=== PATIENT | male | born 1970 | race Caucasian/White ===

== ENCOUNTER 2017-11-30 20:16 | Observation (INO) ==
[2017-11-30] MEDS ORDERED: Aspirin 81 MG TAB.CHEW PO ONE (20:44)
--- NOTE | 2017-11-30 20:52 | Emergency Department Note ---
Disposition Clinical Impression: Unstable angina Disposition: Admitted As Inpatient Condition: Fair Referrals: Man Azar DO [Partnered Physician] - Forms: ED Satisfaction Letter Time of Disposition: 22:36 Chest Pain HPI - General Chief Complaint: ED Chest Pain Stated Complaint: Chest Pain x 1 Day Time Seen by Provider: 11/30/17 20:30 Source: patient Mode of arrival: ambulatory Limitations: no limitations Vital Signs Reviewed: Yes Nursing Notes Reviewed: Yes - History of Present Illness HPI Narrative: Patient's a 47-year-old male complains of gradual onset of atypical chest pain the lower left costal region and the anterior chest that started one day ago around 2 PM while patient was working in his driveway toward [place]. Patient states the pain was strong at 8/10 but then got progressively better throughout the evening and was still constant around 4/10 in intensity. Patient denies any radiation of symptoms but states he had associated shortness of breath. Approximately half hour ago while sitting in adventist patient's chest pain increased to 10/10 suddenly and lasted 20 minutes before going back to 4-5/10. Patient states she has associated diaphoresis with a heightened pain and shortness of breath. Patient admits to prior episodes of pain in the associated area described at onset 1 day ago but states it is never been this bad. Patient states his chest pain symptoms have been intermittently occurring over the past 5 months but he continued to ignore without seeking evaluation. Patient denies any prior cardiac events, hypertension, diabetes, hyperlipidemia. But admits to tobacco use 1 pack a day, and has a family history for of his father secondary to ME at age 41 and mother has CHF but is currently living. Severity scale (1-10): 8 - Related Data Allergies Allergy/AdvReac Type Severity Reaction Status Date / Time Penicillins Allergy See Verified 11/30/17 20:18 Comments pseudoephedrine Allergy Hives Verified 11/30/17 20:18 [From [facility]] All systems ED: reviewed and negative except as stated. Review of Systems: As Per HPI Constitutional: Denies: fever, chills, weakness ENT ED: Denies: congestion Cardiovascular: Reports: chest pain Respiratory: Denies: cough Gastrointestinal: Denies: abdominal pain, nausea, vomiting, diarrhea Musculoskeletal: Denies: back pain Neurological: Reports: headache Chest Pain PMH - Past Medical History Medical history: Reports: no medical history Psychiatric history: Reports: no psych history - Social History Smoking Status: Current every day smoker Alcohol use: Reports: none Drug use: Reports: none Physical Exam Vital Signs Temperature 97.6 F 11/30/17 20:18 Pulse Rate 10 11/30/17 20:18 Respiratory Rate 16 11/30/17 20:18 Blood Pressure 134/71 11/30/17 20:18 O2 Sat by Pulse Oximetry 99 11/30/17 20:18 Temperature 97.6 F 11/30/17 20:18 Pulse Rate 10 11/30/17 20:18 Respiratory Rate 16 11/30/17 20:18 Blood Pressure 134/71 11/30/17 20:18 O2 Sat by Pulse Oximetry 99 11/30/17 20:18 Oxygen Delivery Oxygen Delivery Room Air CONSTITUTIONAL: Well-appearing; well-nourished; A&O X 3, in no apparent distress HEAD: Normocephalic; atraumatic EYES: PERRL, no scleral icterus NOSE: The nose is normal in appearance without rhinorrhea NECK: No JVD or distended neck veins RESP: Normal chest excursion with respiration; breath sounds clear and equal bilaterally; no wheezes, rhonchi, or rales CARD: Regular rhythm, without murmurs, rub or gallop ABD: Non-distended; non-tender, soft, without rigidity, rebound or guarding,no pulsatile mass CHEST: No pain with palpation SKIN: Normal for age and race; warm and dry without diaphoresis ; no apparent lesions EXTREMITIES: Pulses are 2 plus and equal times 4 extremities, no peripheral edema or calf muscle pain - General Limitations: no limitations General appearance: alert, in no apparent distress Course - Reevaluation(s) Reevaluation #1: Patient is pain-free 0/10 to include pressure after second nitroglycerin. 1 inch Nitropaste applied to patient's chest. Time: 22:30 - Consultations Consultation #1: Dr. Gao the Hospitalist as accepted patient for admission to a telemetry bed for evaluation Time: 22:05 Vital Signs Temperature 97.6 F 11/30/17 20:18 Pulse Rate 100 11/30/17 20:18 Respiratory Rate 16 11/30/17 20:18 Blood Pressure 134/71 11/30/17 20:18 O2 Sat by Pulse Oximetry 99 11/30/17 20:18 Temperature 97.6 F 03/18/18 20:18 Pulse Rate 55 11/30/17 21:29 Respiratory Rate 22 11/30/17 21:29 Blood Pressure 127/85 11/30/17 21:29 O2 Sat by Pulse Oximetry 95 11/30/17 21:29 Oxygen Delivery Oxygen Delivery Room Air Chest Pain - MDM Narrative Medical decision making narrative: Patient presents with chest pain symptoms that are atypical in nature but are concerning for possible ACS/ME, unstable angina, but also have pneumothorax, PE in my differential. Patient is an low risk group for PE on the well's criteria. Patient has no clinical signs of DVT, PE is not my #1 diagnosis, patient has a heart rate of 100 but not over, he has no recent history of immobilization of recent surgeries in the past 4 weeks, no complaints of hemoptysis or history of malignancy or treatment for malignancy of the past 6 months. Patient's workup for ACS is negative for any elevation of troponin. EKG showed no signs of ischemia, and chest x-ray was negative for any cardiopulmonary abnormalities to include pneumothorax. Heart score: 3 After 2 sublingual nitroglycerin patient's pain symptoms of 0/10. 1 inch Nitroglycerin paste added to patient's chest. Given patient's family history and conveyance and history of pressure type pain even though it is atypical, with associated pressure diaphoresis and shortness of breath recommended admission for trending of troponins to the patient. The patient understands and agrees and accepts decision for admission. Dr. Gao the Hospitalist as accepted patient for admission to a telemetry bed for evaluation - Lab Data Lab results reviewed: Yes I reviewed the patient's lab results. Lab results narrative: Short CBC 11/30/17 Range/Units 20:51 WBC 6.8 (4.3-11.1) K/mcL Hgb 14.2 (12.9-16.9) g/dL Hct 42.6 (37.5-50.1) % Plt Count 149 (140-400) K/mcL Neutrophils # 3.9 (1.6-8.9) K/mcL BMP 11/30/17 Range/Units 20:51 Sodium 137 (136-145) mEq/L Potassium 3.9 (3.5-5.1) mEq/L Chloride 107 (98-107) mEq/L Carbon Dioxide 25 (23-29) mEq/L BUN 17 (6-20) mg/dL Creatinine 0.65 L (0.70-1.30) mg/dL Glucose 100 (70-105) mg/dL Calcium 9.1 (8.6-10.3) mg/dL Cardiac Enzymes 11/30/17 Range/Units 20:51 Troponin I < 0.03 (< 0.04) ng/mL Result diagrams: 11/30/17 20:51 11/30/17 20:51 Lab Results 11/30/17 11/30/17 11/30/17 Range/Units 20:51 20:51 20:51 WBC 6.8 (4.3-11.1) K/mcL RBC 4.77 (4.19-5.50) M/mcL Hgb 14.2 (12.9-16.9) g/dL Hct 42.6 (37.5-50.1) % MCV 89.3 (83.0-100.0) fL MCH 29.8 (28.0-33.3) pg MCHC 33.3 (31.6-35.5) g/dL RDW 13.1 (11.5-14.5) % Plt Count 149 (140-400) K/mcL MPV 10.4 (9.4-12.4) fL Immature Gran % 0.6 (0-4) % Seg Neutrophils % 56.9 % Lymphocytes % 30.7 % Monocytes % 8.0 % Eosinophils % 3.1 % Basophils % 0.7 % Neutrophils # 3.9 (1.6-8.9) K/mcL Lymphocytes # 2.1 (0.6-4.6) K/mcL Monocytes # 0.6 (0.0-1.3) K/mcL Eosinophils # 0.2 (0.0-0.6) K/mcL Basophils # 0.1 (0.0-0.2) K/mcL PT 10.7 (9.4-12.1) Seconds INR 1.0 APTT 31.3 (26.0-36.0) Seconds Sodium 137 (136-145) mEq/L Potassium 3.9 (3.5-5.1) mEq/L Chloride 107 (98-107) mEq/L Carbon Dioxide 25 (23-29) mEq/L BUN 17 (6-20) mg/dL Creatinine 0.65 L (0.70-1.30) mg/dL Est GFR ( Amer) > 60 (> 60) Est GFR (Non-Af Amer) > 60 (> 60) BUN/Creatinine Ratio 26 (6-26) Glucose 100 (70-105) mg/dL Calculated Osmolality 286 (280-300) Calcium 9.1 (8.6-10.3) mg/dL Troponin I < 0.03 (< 0.04) ng/mL - Radiology Data Radiology results reviewed: Yes I reviewed the patient's radiology results. Chest X-Ray 11/30/17 20:22 IMPRESSION: 1. No acute process. D/ / Sandro Dewey MD / Sandro Dewey MD Interpreting Provider: Sandro Dewey MD - EKG Data EKG attestation: Yes I reviewed and interpreted this EKG. EKG results narrative: EKG taken 11/30/2017 at 2021 hrs. shows a sinus rhythm at a rate of [address] elevations or depressions in leads for signs of ischemia. Patient has previous EKG with similar morphology taken 05/04/2013. T waves appear hyperacute in both EKGs. No signs of Brugada or Wellens on either EKG. Heart Score - Score History: Moderately Suspicious EKG: Normal Age: 45-65 Risk Factors: 1-2 risk factors Troponin: Less than normal limit HEART Score Total: 3 Attestation Statement - Attestation Attestation: I examined this patient and my medical decision-making was reviewed with the Resident Physician, Dr. Velasco. I agree with the documented findings, disposition and treatment plan as described except to the extent set forth below. Patient is a 47-year-old white male with no prior cardiac history who presents to the emergency department today with intermittent episodes of left-sided chest discomfort associated with diaphoresis. Episodes are not necessarily related to exertion and some have been happening at rest. Patient arrives with pain that he rates 5 out of 10 in severity on arrival. Patient denies any shortness of breath, no nausea vomiting, no abdominal pain or flank pain, no lightheadedness or syncope. I agree with patient's physical exam findings as documented. Vital signs are stable. Patient received aspirin and nitroglycerin trial on arrival and initial EKG shows a normal sinus rhythm without acute ischemia. Patient's pain was relieved after nitroglycerin trial. Labs are unremarkable overall including a negative troponin chest x-ray is unremarkable. Patient's resting comfortably at this time with stable vital signs and chest pain-free. We will admit the patient for further evaluation of possible ACS.
[2017-11-30 21:20] LABS: Hematocrit 42.6 % (37.5-50.1); Hemoglobin 14.2 g/dL (12.9-16.9); Immature Granulocytes % 0.6 % (0-4); Lymphocytes % 30.7 %; Mean Corpuscular HGB Conc 33.3 g/dL (31.6-35.5); Mean Corpuscular Hemoglobin 29.8 pg (28.0-33.3); Mean Corpuscular Volume 89.3 fL (83.0-100.0); Mean Platelet Volume 10.4 fL (9.4-12.4); Platelet Count 149 K/mcL (140-400); Red Blood Count 4.77 M/mcL (4.19-5.50); Red Cell Distribution Width 13.1 % (11.5-14.5); Segmented Neutrophils % 56.9 %
[2017-11-30 21:21] LABS: Basophils # 0.1 K/mcL (0.0-0.2); Basophils % 0.7 %; Eosinophils # 0.2 K/mcL (0.0-0.6); Eosinophils % 3.1 %; Lymphocytes # 2.1 K/mcL (0.6-4.6); Monocytes # 0.6 K/mcL (0.0-1.3); Neutrophils # 3.9 K/mcL (1.6-8.9)
[2017-11-30 21:26] LABS: Prothrombin Time 10.7 Seconds (9.4-12.1)
[2017-11-30 21:29] LABS: Activated Partial Thrombo Time 31.3 Seconds (26.0-36.0)
[2017-11-30] MEDS: Nitroglycerin 0.4 MG TAB.SUBL SL PRN ×2 (21:29→22:02)
[2017-11-30 21:42] LABS: BUN/Creatinine Ratio 26 (6-26); Blood Urea Nitrogen 17 mg/dL (6-20); Calcium 9.1 mg/dL (8.6-10.3); Carbon Dioxide 25 mEq/L (23-29); Chloride 107 mEq/L (98-107); Glucose 100 mg/dL (70-105); Osmolality,Calculated 286 (280-300); Potassium 3.9 mEq/L (3.5-5.1); Sodium 137 mEq/L (136-145); Troponin I < 0.03 ng/mL (< 0.04); eGFR For African Americans > 60 (> 60); eGFR For Non-African Americans > 60 (> 60)
[2017-11-30] MEDS ORDERED: Nitroglycerin 1 INCH/GM PACKET TP ONE (22:30)
[2017-12-01] MEDS ORDERED: Acetaminophen 325 MG TABLET PO PRN (01:13)
[2017-12-01] MEDS ORDERED: Naloxone 0.4 MG/ML INJ IVP PRN (01:13)
[2017-12-01 02:43] LABS: Basophils % 0.6 %; Eosinophils # 0.3 K/mcL (0.0-0.6); Eosinophils % 3.5 %; Hematocrit 40.2 % (37.5-50.1); Hemoglobin 13.5 g/dL (12.9-16.9); Lymphocytes # 2.4 K/mcL (0.6-4.6); Lymphocytes % 33.6 %; Mean Corpuscular HGB Conc 33.6 g/dL (31.6-35.5); Mean Corpuscular Hemoglobin 30.1 pg (28.0-33.3); Mean Corpuscular Volume 89.5 fL (83.0-100.0); Mean Platelet Volume 10.6 fL (9.4-12.4); Monocytes # 0.5 K/mcL (0.0-1.3); Monocytes % 7.6 %; Neutrophils # 3.8 K/mcL (1.6-8.9); Nucleated Red Blood Cells 0.7 /100 WBC (0); Platelet Count 132 K/mcL (140-400); Red Blood Count 4.49 M/mcL (4.19-5.50); Red Cell Distribution Width 13.1 % (11.5-14.5); Segmented Neutrophils % 53.7 %
[2017-12-01 03:03] LABS: BUN/Creatinine Ratio 24 (6-26); Blood Urea Nitrogen 17 mg/dL (6-20); Carbon Dioxide 29 mEq/L (23-29); Chloride 106 mEq/L (98-107); Glucose 125 mg/dL (70-105); Osmolality,Calculated 295 (280-300); Potassium 3.9 mEq/L (3.5-5.1); Sodium 141 mEq/L (136-145); eGFR For African Americans > 60 (> 60); eGFR For Non-African Americans > 60 (> 60)
--- NOTE | 2017-12-01 03:04 | Internal Med History&Physical ---
Date of Encounter: 12/01/17 Time of Encounter: 01:00 Assessment and Plan (1) Chest pain Current visit: Yes Status: Acute Patient has chest pain. No previous history of CAD. Patient has risk factor of smoking. Need to rule out ACS - Continuous cardiac monitoring - Check 3 sets of troponin - Consider stress test in a.m. if patient remains pain free and troponin negative. Qualifiers: Chest pain type: precordial pain Qualified Code(s): R07.2 - Precordial pain (2) Tobacco abuse Current visit: Yes Status: Acute Smoking cessation education. Patient said that he does not need nicotine patch (3) DVT prophylaxis Current visit: Yes Status: Acute Patient is young and ambulating, low risk for DVT, no anticoagulation indicated Internal Medicine - H&P: HPI Chief complaint: Chest pain Admitted From: Home Plans for Post Hospital Care: Home History of present illness: Mr. Burris is a 47 year old male with no known medical history present to ER for chest pain. Patient said the pain started about 1 day ago. Onset is sudden when he is at rest. Patient said the pain is constant but the intense varies. The pain is located on left lower chest, pressure-like, no radiation. Patient has mild shortness of breath. He has no nausea. He reports diaphoresis when pain is worse. Patient has no fever, no cough. Patient said that the chest pain is not related to breathing. Patient denies recent travel or immobilization. In the emergency room, he was treated with nitroglycerin sublingual and nitroglycerin paste. When I saw him in floor, he said he is pain -free but still feels a little bit pressure. Patient was admitted to rule out ACS. Past Med Surg Social Fam HX - Past Medical History Medical history: no medical history, peripheral artery disease Psychiatric history: no psych history - Social History Smoking Status: Current every day smoker Packs per day: 1 Smokeless Tobacco Status: No Alcohol use: none Drug use: none - Family History Mother Family Member Ethnicity: Non- Living Status: Age at : 68 Hx Family Cardiac Disorders: Yes (CHF) Father Family Member Ethnicity: Non- Living Status: Age at : 41 Hx Family Cardiac Disorders: Yes (heart attack) Internal Medicine - H&P: Meds 3 Allergy/AdvReac Type Severity Reaction Status Date / Time Penicillins Allergy See Verified 11/30/17 20:18 Comments pseudoephedrine Allergy Hives Verified 11/30/17 20:18 [From [facility]] All Systems PM: A 10-system review of systems was performed and is negative for pertinent findings except as documented above in the HPI. - Constitutional Vitals: Temp Pulse Resp BP Pulse Ox 97.9 F 52 15 111/67 95 11/30/17 23:40 11/30/17 23:40 11/30/17 23:40 11/30/17 23:40 11/30/17 23:40 General appearance: Present: A&O X 3, no acute distress, answers questions appropriately - Head Head exam: Present: atraumatic, normocephalic - Eye Eye exam: Present: PERRL, conjuntiva pink, sclera anicteric Pupils: Present: PERRL - Neck Neck exam general surgery: Present: supple, trachea midline. Absent: lymphadenopathy - Respiratory Respiratory exam: Present: CTAB. Absent: accessory muscle use, rales, rhonchi, wheezes - Cardiovascular Cardiovascular exam: Present: RRR, +S1, +S2. Absent: diastolic murmur, gallop, rubs, systolic murmur - GI/Abdominal GI/Abdominal exam: Present: normal bowel sounds, soft, no peritoneal signs. Absent: distended, tenderness - Extremities Exam Extremities exam: Present: warm, radial pulses palpable and symmetrical. Absent : calf tenderness, cyanotic, pedal edema - Neurological Exam Neurological exam: Present: CN II-XII intact, oriented X3, no focal deficits. Absent: pronater drift, facial droop, speech deficit - Skin Skin exam: Present: dry, intact Internal Med - H&P Results - Labs CBC & Chem 7: 12/01/17 02:05 11/30/17 20:51 Labs: Short CBC 12/01/17 Range/Units 02:05 WBC 7.1 (4.3-11.1) K/mcL Hgb 13.5 (12.9-16.9) g/dL Hct 40.2 (37.5-50.1) % Plt Count 132 L (140-400) K/mcL Neutrophils # 3.8 (1.6-8.9) K/mcL - EKG Data -: EKG Interpreted by Myself EKG shows normal: sinus rhythm Rate: normal
[2017-12-01] MEDS ORDERED: Regadenoson 0.4 MG/5 ML SYRINGE IVP ONE (05:58)
--- NOTE | 2017-12-01 17:35 | Event Note ---
Date of Encounter: 12/01/17 Time of Encounter: 11:00 Patient evaluated by syed earlier this morning and also by myself Patient with significant family history of coronary arterial disease with chest pain Nuclear medicine stress tests for ACS rule out
[2017-12-02] MEDS ORDERED: Regadenoson 0.4 MG/5 ML SYRINGE IVP ONE (08:41)
[2017-12-02 10:39] VITALS: BP 125/80
--- NOTE | 2017-12-02 13:20 | Discharge Summary ---
Orders not resulted at time of discharge: Pending orders 12/01/17 00:39 EKG [ECG 12 lead ECG] [ECG] Stat 12/01/17 01:16 NM joelle perf SPECT multi [NM] Routine Date of Encounter: 12/02/17 Time of Encounter: 12:00 - Discharge Diagnosis (1) Chest pain Priority: Primary Status: Acute Qualifiers: Chest pain type: precordial pain Qualified Code(s): R07.2 - Precordial pain (2) PAD (peripheral artery disease) Priority: Secondary Status: Chronic (3) Obesity Priority: Secondary Status: Chronic Qualifiers: Obesity type: due to excess calories Serious obesity comorbidity presence: without serious comorbidity Body mass index: BMI 35.0-35.9 Qualified Code(s) : E66.09 - Other obesity due to excess calories; Z68.35 - Body mass index (BMI) 35.0-35.9, adult; Z68.35 - Body mass index (BMI) 35.0-35.9, adult (4) Tobacco abuse Priority: Secondary Status: Chronic Hospital course: Mr. Burris is a 47 year old male with history of tobacco abuse and peripheral arterial disease, who was admitted with retrosternal chest pain. Initial labs, EKG and chest x-ray showed no acute abnormality. Telemetry monitoring remained uneventful, serial troponins remained negative for ACS. Nuclear stress test was done, which was negative for ischemia or infarct. Patient is medically stable for discharge. He is encouraged to consider abstaining from smoking, verbalized understanding. He does have a history of peripheral arterial disease with previous vascular intervention, however he has lost to follow-up, being discharged on daily aspirin at this time. Discharge discussed with: patient, family Time spent discussing smoking cessation with patient: 3 to 10 minutes - Time Spent with Patient Total time spent providing and/or coordinating discharge services: Greater than 30 minutes (40 MIN) - Discharge Medications Prescriptions: Aspirin Enteric Coated [Aspirin EC] 81 mg PO DAILY #30 tablet. Home Medications: Buprenorphine HCl/Naloxone HCl [Buprenorphin-Naloxon 8-2 mg Sl] 1 tab SL BID [History] Aspirin Enteric Coated [Aspirin EC] 81 mg PO DAILY #30 tablet. 12/02/17 [Rx] Allergies/Adverse Reactions: 3 Allergy/AdvReac Type Severity Reaction Status Date / Time Penicillins Allergy See Verified 11/30/17 20:18 Comments pseudoephedrine Allergy Hives Verified 11/30/17 20:18 [From [facility]] Date of admission: 11/30/17 23:21 Primary care physician: PCP NONE Discharging clinician: Fawn Main Anticipated date of discharge: 12/02/17 - Constitutional Vitals: Temp Pulse Resp BP Pulse Ox 97.9 F 64 16 125/80 96 12/02/17 10:36 12/02/17 10:36 12/02/17 10:36 12/02/17 10:36 12/02/17 10:36 General appearance: Present: A&O X 3, obese, answers questions appropriately - Cardiovascular Cardiovascular exam: Present: RRR, +S1, +S2. Absent: diastolic murmur, gallop, rubs, systolic murmur - Patient Status Disposition: Home, Self-Care Condition: Good Functional capacity at discharge: independent ambulation Overall status at discharge: patient is back to baseline - Discharge Instructions Instructions: Chest Pain (DC) Follow Up With: Man Azar DO [Partnered Physician] - 12/15/17 9:30 am Additional Instructions: F/up with PCP in 1-2 weeks - Diet and Activity Activity: resume usual activities as tolerated Diet: low fat, low cholesterol, low salt diet
--- NOTE | 2017-12-02 23:47 | Electrocardiograph Report ---
[address] [place] [address] Test Date: 2017-11-30 Pat Name: Sandro Burris Department: [id number] Room: 3A63 Gender: M [employer] Agent: JIM : 1970 Requested By: Domo Matson Order Number: [id number] Reading MD: Micah Mcdonald DO Measurements Intervals [place] Rate: 60 P: 39 DE: 177 QRS: 28 QRSD: 112 T: 58 QT: 389 QTc: 389 Interpretive Statements SINUS RHYTHM POSSIBLE LATERAL MYOCARDIAL INFARCTION, OF INDETERMINATE AGE Electronically Signed On 12-02-2017 23:45:57 EDT by Micah Mcdonald DO
== END 2017-12-02 14:04 | disposition home or self-care (01) ==
LOC: EMEROO 20:16 → 3ANU 20:16 → SUATTDRO 23:21 → 3ANU 23:39
PROVIDERS: ADMIT Internal Medicine; ATTEND Internal Medicine

== ENCOUNTER 2019-05-09 00:56 | Observation (INO) ==
[2019-05-09] MEDS ORDERED: Ondansetron 4 MG/2 ML VIAL IVP PRN ×2 (01:29→19:36)
[2019-05-09] MEDS: 0.9 % Sodium Chloride 1,000 ML IVC SCH ×4 (02:35→20:54)
[2019-05-09] MEDS: Acetaminophen IV 1,000 MG/100 ML INFUS..BTL IVPB SCH ×4 (02:42→19:58)
[2019-05-09] MEDS ORDERED: levoFLOXacin 500 MG/100 ML 500 MG/100 ML BAG IVPB SCH (08:00)
[2019-05-09 08:51] LABS: Basophils # 0.1 K/mcL (0.0-0.2); Eosinophils # 0.2 K/mcL (0.0-0.6); Eosinophils % 3.2 %; Hematocrit 39.3 % (37.5-50.1); Hemoglobin 13.1 g/dL (12.9-16.9); Immature Granulocytes % 0.5 % (0-4); Lymphocytes # 1.9 K/mcL (0.6-4.6); Lymphocytes % 31.7 %; Mean Corpuscular HGB Conc 33.3 g/dL (31.6-35.5); Mean Corpuscular Hemoglobin 30.5 pg (28.0-33.3); Mean Corpuscular Volume 91.4 fL (83.0-100.0); Mean Platelet Volume 10.8 fL (9.4-12.4); Monocytes # 0.5 K/mcL (0.0-1.3); Monocytes % 8.9 %; Neutrophils # 3.2 K/mcL (1.6-8.9); Platelet Count 123 K/mcL (140-400); Segmented Neutrophils % 54.7 %; White Blood Count 5.9 K/mcL (4.3-11.1)
[2019-05-09 08:59] LABS: Alanine Aminotransferase 12 Units/L (7-52); Albumin 3.7 g/dL (3.5-5.7); Albumin/Globulin Ratio 1.7 (1.1-2.2); Alkaline Phosphatase 48 Units/L (34-104); Aspartate Amino Transferase 12 Units/L (13-39); BUN/Creatinine Ratio 24 (6-26); Bilirubin,Total 0.4 mg/dL (0.3-1.0); Blood Urea Nitrogen 16 mg/dL (6-20); Calcium 8.6 mg/dL (8.6-10.3); Carbon Dioxide 26 mEq/L (23-29); Chloride 105 mEq/L (98-107); Globulin 2.2 g/dL (2.4-3.5); Glucose 97 mg/dL (70-105); Osmolality,Calculated 287 (280-300); Potassium 3.9 mEq/L (3.5-5.1); Sodium 138 mEq/L (136-145); Total Protein 5.9 g/dL (6.4-8.9); eGFR For African Americans > 60 (> 60); eGFR For Non-African Americans > 60 (> 60)
[2019-05-09] MEDS: MetroNIDAZOLE 500 MG/100 ML 500 MG/100 ML BAG IVPB SCH ×3 (09:04→19:57)
[2019-05-09] MEDS ORDERED: Nicotine 21 MG PATCH.TD24 TD SCH (09:35)
[2019-05-09] MEDS ORDERED: *HR* Propofol 200 MG/20 ML VIAL IVP ONE (12:44)
[2019-05-09] MEDS ORDERED: *HR* FentaNYL (PF) 100 MCG/2 ML VIAL ONE (12:44)
[2019-05-09] MEDS ORDERED: *HR* Midazolam HCl 2 MG/2 ML VIAL ONE (12:46)
[2019-05-09] MEDS ORDERED: Lidocaine -MPF 2% 2 ML VIAL ONE (12:47)
[2019-05-09] MEDS ORDERED: Ondansetron 4 MG/2 ML VIAL ONE (12:47)
[2019-05-09] MEDS ORDERED: *HR* Rocuronium Bromide 50 MG/5 ML VIAL ONE (12:47)
[2019-05-09] MEDS ORDERED: Isovue-300 50ML VIAL ONE (16:19)
[2019-05-09] MEDS ORDERED: Levalbuterol Neb 1.25 MG/3 ML IH ONE (16:24)
[2019-05-09] MEDS ORDERED: *HR* OxyCODONE Immed Rel 5 MG TABLET PO PRN (16:29)
[2019-05-09] MEDS ORDERED: *HR* Succinylcholine 200 MG/10 ML VIAL IVP ONE (16:35)
[2019-05-09] MEDS ORDERED: MetroNIDAZOLE 500 MG/100 ML 500 MG/100 ML BAG IVPB ONE (17:01)
[2019-05-09] MEDS ORDERED: Dexamethasone 4 MG/ML VIAL ONE (17:38)
[2019-05-09] MEDS ORDERED: Neostigmine Methylsulfate 3 MG/3 ML SYRINGE ONE (17:39)
[2019-05-09] MEDS ORDERED: *HR* HYDROMORPHONE 2 MG/ML VIAL ONE (17:52)
[2019-05-09] MEDS: *HR* HYDROmorphone (PF) 1 MG/ML SYRINGE IVP PRN ×2 (18:19→18:24)
[2019-05-09] MEDS ORDERED: *HR* Promethazine 25 MG/ML VIAL ONE (18:27)
[2019-05-09] MEDS: *HR* Promethazine 25 MG/ML VIAL IVP PRN ×2 (18:28→18:34)
[2019-05-10] MEDS: Acetaminophen IV 1,000 MG/100 ML INFUS..BTL IVPB SCH ×2 (00:08→05:09)
[2019-05-10] MEDS: MetroNIDAZOLE 500 MG/100 ML 500 MG/100 ML BAG IVPB SCH ×2 (00:09→05:09)
[2019-05-10] MEDS: 0.9 % Sodium Chloride 1,000 ML IVC SCH (05:09)
[2019-05-10 07:30] VITALS: BP 109/67
[2019-05-10] MEDS ORDERED: levoFLOXacin 500 MG/100 ML 500 MG/100 ML BAG IVPB SCH (08:00)
[2019-05-10] MEDS ORDERED: Ibuprofen 800 MG TABLET PO ONE (08:45)
[2019-05-10] MEDS ORDERED: NON-FORMULARY MEDICATION 1 EACH EACH (Buprenorphine Hcl/Naloxone Hcl [Suboxone 8 Mg-2 Mg S SL SCH (09:00)
[2019-05-10] MEDS ORDERED: Nicotine 21 MG PATCH.TD24 TD SCH (09:00)
== END 2019-05-10 09:20 | disposition home or self-care (01) ==
LOC: 3ANU
PROVIDERS: ADMIT Surgery; ATTEND Surgery